=== PATIENT | female | born 1985 | race Caucasian/White ===

== ENCOUNTER 2019-06-09 01:25 | Emergency (ER) | payer OTHER ==
[~2019-06-09] VITALS: Ht 160 cm; Wt 114.8 kg
[2019-06-09 01:30] VITALS: BP 116/64
--- NOTE | 2019-06-09 01:31 | NUR ---
PT TAKEN TO BED 6
--- NOTE | 2019-06-09 01:52 | NUR ---
34 Y/O FEMALE C/O BILATERAL CALF PAIN X 2 DAYS. PT STATES "MY LEGS FEEL UNCOMFORTABLE. THEY FEEL CRAMP LIKE PAIN". PT STATED SHE WAS AT [facility] ON VACATION FOR 2 DAYS AND HER LEGS AND SOLES OF FEET STARTED TO HURT. PT STATED SHE WENT TO [facility] ON VACATION FOR 2 DAYS AND HER LEGS STATED TO HURT. PT HAS SOME NAUSEA BUT DENIES VOMITING. SHE TOOK PANTOPRAZOLE FOR NAUSEA. A/OX4 AND FOLLOWS COMMANDS. HAND TOWER OPERATOR ARE STRONG. ANKLES SHOW BILATERAL ANKLE NONPITTING EDEMA. ERMD MADE AWARE OF STATUS. PLACED ON MONITOR. SIDE RAILSX2. SPOUSE AT BEDSIDE. [facility] HX THYROID AND ASTHMA RX:SYNTHROID; VENTOLIN
--- NOTE | 2019-06-09 02:28 | NUR ---
Dr. Fan examining patient.
--- NOTE | 2019-06-09 02:45 | NUR ---
CANDICE GLASS AT BEDSIDE.
--- NOTE | 2019-06-09 03:18 | NUR ---
PATIENT IS SITTING QUIETLY IN BED. SPOUSE AT BEDSIDE.
--- NOTE | 2019-06-09 03:57 | NUR ---
ULTRASOUNDS AT BEDSIDE.
--- NOTE | 2019-06-09 04:29 | NUR ---
PATIENT IS SLEEPING AT THIS TIME.
--- NOTE | 2019-06-09 05:01 | NUR ---
PATIENT IS SLEEPING AT THIS TIME. BLOOD PRESSURE IS 104/43. NOTIFIED MD. OF BLOOD PRESSURE READING.
[2019-06-09] MEDS ORDERED: HYDROcodone/APAP 5/325 MG 1 TAB TAB PO ONE (05:10)
--- NOTE | 2019-06-09 05:17 | NUR ---
AT BEDSIDE AT THIS TIME.
[2019-06-09 05:19] VITALS: BP 118/71
--- NOTE | 2019-06-09 05:19 | NUR ---
Patient discharged with v/s stable. Written and verbal after care instructions given and explained. Patient verbalized understanding. Ambulatory with steady gait. All questions addressed prior to discharge. Advised to follow up with PMD.
== END 2019-06-09 05:19 | disposition home or self-care (01) ==
LOC: MED 01:25
DX: M79.89 Other specified soft tissue disorders (principal); J45.909 Unspecified asthma, uncomplicated; E07.9 Disorder of thyroid, unspecified
CPT/HCPCS: 93970; 99284; Q0092